=== PATIENT | female | born 1940 | race Caucasian/White ===

== ENCOUNTER → 2017-11-02 | Outpatient (CLI) | payer MEDICARE, BC ==
[~2017-11-02] MED LIST: BIOT10TA PO; CHOL1CAP34 PO; PANT40TA3 PO
[2017-11-02 09:54] LABS: BASOPHIL # 0.1 TH/MM3 (0-0.2); EOSINOPHIL # 0.2 TH/MM3 (0-0.4); HEMATOCRIT 38.7 % (35.0-46.0); HEMOGLOBIN 12.9 GM/DL (11.6-15.3); LYMPH % 37.9 % (9.0-44.0); LYMPHOCYTE # 2.3 TH/MM3 (1.0-4.8); MEAN CELL VOLUME 90.6 FL (80.0-100.0); MEAN CORPUSCULAR HEMOGLOBIN 30.3 PG (27.0-34.0); MEAN CORPUSCULAR HGB CONC 33.4 % (32.0-36.0); MEAN PLATELET VOLUME 7.7 FL (7.0-11.0); MONO % 9.6 % (0.0-8.0); MONOCYTE # 0.6 TH/MM3 (0-0.9); NEUT % 48.5 % (16.0-70.0); PLATELET COUNT 290 TH/MM3 (150-450); RED BLOOD COUNT 4.27 MIL/MM3 (4.00-5.30); RED CELL DISTRIBUTION WIDTH 13.6 % (11.6-17.2); WHITE BLOOD COUNT 6.2 TH/MM3 (4.0-11.0)
[2017-11-02 10:04] LABS: PROTHROMBIN TIME - PATIENT 10.3 SEC (9.8-11.6)
[2017-11-02 10:19] LABS: BILIRUBIN, URINE NEG (NEG); BLOOD, URINE NEG (NEG); GLUCOSE,URINE NEG (NEG); KETONE, URINE NEG (NEG); MUCUS URINE FEW /lpf (OCC); NITRITE,URINE NEG (NEG); PH, URINE 5.5 (5.0-8.5); URINE COLOR YELLOW (YELLW/STRAW); URINE LEUKOCYTE ESTERASE NEG (NEG)
[2017-11-02 10:23] LABS: ALBUMIN 4.3 GM/DL (3.4-5.0); ALT (GPT) 32 U/L (10-53); AST (GOT) 17 U/L (15-37); BICARBONATE 29.4 MEQ/L (21.0-32.0); BLOOD UREA NITROGEN 19 MG/DL (7-18); CALCIUM 9.8 MG/DL (8.5-10.1); CHLORIDE 106 MEQ/L (98-107); CREATININE 0.78 MG/DL (0.50-1.00); GLOMERULAR FILTRATION RATE 72 ML/MIN (>89); GLUCOSE,FASTING 106 MG/DL (74-99); SODIUM (NA) 142 MEQ/L (136-145)
[2017-11-02 10:25] LABS: ALKALINE PHOSPHATASE 70 U/L (45-117); TOTAL BILIRUBIN ADULT 0.8 MG/DL (0.2-1.0)
--- NOTE | 2017-11-02 11:02 | RADRPT ---
EXAM DATE: 11/02/2017 10:34 AM EDT AGE/SEX: 77 years / Female INDICATIONS: Evaluate for pneumonia, pneumothorax or communicable disease. Preop chest for colon argenis maren on 11/09/17 CLINICAL DATA: This is the patient's initial encounter. Patient reports that signs and symptoms have been present for 1 day and indicates a pain score of 0/10. MEDICAL/SURGICAL HISTORY: Diverticulosis. Diverticulitis. None. COMPARISON: No prior exams available for comparison. FINDINGS: PA and lateral views of the chest demonstrate the lungs to be symmetrically aerated without evidence of mass, infiltrate or effusion. The cardiomediastinal contours are unremarkable. Osseous structures are intact. CONCLUSION: Negative examination. Electronically signed by: Brett Paredes MD 11/02/2017 11:01 AM EDT
--- NOTE | 2017-11-02 18:17 | EKG ---
Date Performed: 11/02/2017 Time Performed: 09:36:43 PTAGE: 77 years EKG: Sinus rhythm POSSIBLE LEFT ATRIAL ENLARGEMENT BORDERLINE ECG NO PREVIOUS TRACING DOCTOR: Alexandrea Green Interpretating Date/Time 11/02/2017 18:13:08
== END ==
LOC: CPRE 09:10
PROVIDERS: ATTEND Colon & Rectal Surgery
DX: Z01.810 Encounter for preprocedural cardiovascular examination (principal); K57.20 Diverticulitis of large intestine with perforation and abscess without bleeding; R94.31 Abnormal electrocardiogram [ECG] [EKG]; Z01.812 Encounter for preprocedural laboratory examination; Z01.818 Encounter for other preprocedural examination
CPT/HCPCS: 36415; 71046; 80053; 81001; 85025; 85610; 85730; 93005

== ENCOUNTER 2017-11-09 11:14 | Inpatient (IN) | payer MEDICARE, BC ==
[~2017-11-09] VITALS: Ht 157.5 cm; Wt 44.3 kg
[2017-11-09] MEDS ORDERED: ONDANSETRON HCL 4 MG/2 ML VIAL IV ONE (12:00)
[2017-11-09] MEDS ORDERED: GLYCOPYRROLATE 1 MG/5 ML SYRINGE IV PUSH ONE (12:00)
[2017-11-09] MEDS ORDERED: SODIUM CHLORID 0.9% 500 ML IV PRN (12:00)
[2017-11-09] MEDS ORDERED: DEXAMETHASONE SOD PHOS 4 MG/ML VIAL IV ONE (12:00)
[2017-11-09] MEDS ORDERED: NEOSTIGMINE 5 MG/5 ML SYRINGE IV PUSH ONE (12:00)
[2017-11-09] MEDS ORDERED: ROCURONIUM INJ 50 MG/5 ML SYRINGE IV PUSH ONE (12:00)
[2017-11-09] MEDS ORDERED: METOPROLOL TARTRATE 25 MG TAB PO PRN (12:00)
[2017-11-09] MEDS ORDERED: DEXT 5%-NACL 0.9% 1000 ML INJ 1,000 ML IV SCH (12:00)
[2017-11-09] MEDS ORDERED: CHLORHEXIDINE GLUCONATE 2 % 1 PACK (2 CLOTHS) TOPICAL PRN (12:00)
[2017-11-09] MEDS ORDERED: PROPOFOL 200 MG/20 ML AMP IV ONE (12:00)
[2017-11-09] MEDS ORDERED: ceFAZolin 1,000 MG/NS 100 ML IV SCH ×2 (12:00)
[2017-11-09] MEDS ORDERED: KETOROLAC TROMETHAMINE 30 MG/ML (IVP) VIAL IV PUSH ONE (12:00)
[2017-11-09] MEDS ORDERED: NORMOSOL R INJ 2,000 ML IV ONE (12:00)
[2017-11-09] MEDS ORDERED: POVIDONE IODINE 5% (ANTISEPSIS KIT) 4 APPLICATIONS EACH NARE PRN (12:00)
[2017-11-09] MEDS ORDERED: LACTATED RINGER'S 1000 ML IV PRN (12:00)
[2017-11-09] MEDS ORDERED: ePHEDrine/NS 25 MG/5 ML SYRINGE IV ONE (12:00)
[2017-11-09] MEDS ORDERED: LIDOCAINE HCL 1% PF 5 ML SYRINGE OTHER ONE (12:00)
[2017-11-09] MEDS ORDERED: ALVIMOPAN 12 MG CAPSULE - On Call PO SCH (12:15)
[2017-11-09] MEDS ORDERED: APREPITANT 40 MG CAP ONE (12:47)
[2017-11-09] MEDS ORDERED: fentaNYL CITRATE 250 MCG/5 ML AMP ONE (12:59)
[2017-11-09] MEDS ORDERED: ACETAMINOPHEN 1000 MG/100 ML 100 ML IV ONE ×3 (12:59→16:45)
[2017-11-09] MEDS ORDERED: BUPIVACAINE HCL PF 0.5% 30 ML VIAL ONE (12:59)
[2017-11-09] MEDS ORDERED: GLUCAGON 1 MG/ML VIAL ONE (12:59)
[2017-11-09] MEDS ORDERED: APREPITANT 40 MG CAP PO ONE (13:45)
--- NOTE | 2017-11-09 14:11 | PD.OP ---
Operative Report Date of Surgery: Nov 09, 2017 Preoperative Diagnosis: Diverticulitis Postoperative Diagnosis: Same Procedure: Urethral dilatation, cystoscopy, placement of right ureteral catheter Anesthesia: RAMA Surgeon: Carlos Etienne Sourcing Coordinator(s): None Resident Surgeon: None Operation and Findings: 77-year-old female with history of diverticulitis. Request were made for bilateral ureteral catheter insertion. Patient was placed in the dorsal lithotomy position, prepped and draped in usual sterile fashion, received preprocedure antibiotics and general endotracheal tube anesthesia was administered. Initially I was unable to insert a 22 Prydeinig cystoscope and therefore urethral dilatation was performed. Using a 18 sound up to a 24 sound urethral dilatation occurred. The 22 Prydeinig cystoscope then was able to be inserted easily into the bladder and caraballo cystoscopy did not reveal any abnormalities. The right ureteral orifice was identified and a 5 Prydeinig open- ended catheter was inserted into the right ureteral orifice without difficulty. This was repeated on the left side however the catheter would not advance. A 0.35 sensor wire was then passed through the open-ended catheter and the wire would still not advance up the ureter. Decision was made to abort this portion of the procedure and the Bell catheter was inserted and the single catheter was attached to the Bell catheter. She tolerated the procedure well. Carlos Etienne DO Nov 09, 2017 14:11
[2017-11-09] MEDS ORDERED: SUGAMMADEX SODIUM 200 MG/2 ML VIAL IV PUSH ONE (15:22)
[2017-11-09] MEDS ORDERED: metroNIDAZOLE 500 MG INJ 100 ML IV SCH (15:30)
[2017-11-09] MEDS: D5-LR + KCL 20 MEQ INJ 1,000 ML IV SCH ×3 (15:30→20:46)
[2017-11-09] MEDS ORDERED: ENALAPRILAT 1.25 MG/ML VIAL IV PUSH PRN (15:30)
[2017-11-09] MEDS ORDERED: NALOXONE HCL 0.4 MG/ML AMP IV PUSH PRN (15:30)
[2017-11-09] MEDS ORDERED: KETOROLAC TROMETHAMINE 30 MG/ML (IVP) VIAL IVP PRN (15:30)
[2017-11-09] MEDS ORDERED: POTASSIUM CHLOR 40 MEQ PREMIX 100 ML IV PRN (15:30)
[2017-11-09] MEDS ORDERED: SODIUM CHLORIDE 0.9% FLUSH 10 ML FLUSH IV FLUSH PRN (15:30)
[2017-11-09] MEDS ORDERED: HYDROmorphone HCL PCA 6 MG/30 ML IV SCH (15:30)
[2017-11-09] MEDS ORDERED: ZOLPIDEM TARTRATE 5 MG TAB PO PRN (15:30)
[2017-11-09] MEDS ORDERED: BENZOCAINE 6 MG/MENTHOL 10 MG LOZENGE BUCCAL PRN (15:30)
[2017-11-09] MEDS ORDERED: Post-op Orders (for Pharmacy) XX ONE (15:30)
[2017-11-09] MEDS ORDERED: ACETAMINOPHEN/HYDROcodone 325 MG/5 MG TAB PO PRN (15:30)
[2017-11-09] MEDS ORDERED: POTASSIUM CHLOR 20 MEQ PREMIX 100 ML IV PRN (15:30)
[2017-11-09] MEDS ORDERED: NALOXONE HCL 0.4 MG/ML AMP ONE (15:37)
[2017-11-09] MEDS ORDERED: DO NOT ADM ANY ANTICOAGULANT DRUGS PRN (15:47)
[2017-11-09] MEDS ORDERED: HYDROmorphone HCL PF 2 MG/ML VIAL ONE (15:54)
[2017-11-09 16:13] LABS: AUTOMATED NEUTROPHIL # 14.4 TH/MM3 (1.8-7.7); BASOPHIL % 0.2 % (0.0-2.0); EOSINOPHIL # 0.1 TH/MM3 (0-0.4); EOSINOPHIL % 0.3 % (0.0-4.0); HEMATOCRIT 34.5 % (35.0-46.0); HEMOGLOBIN 11.6 GM/DL (11.6-15.3); LYMPH % 9.8 % (9.0-44.0); LYMPHOCYTE # 1.6 TH/MM3 (1.0-4.8); MEAN CELL VOLUME 91.1 FL (80.0-100.0); MEAN CORPUSCULAR HEMOGLOBIN 30.5 PG (27.0-34.0); MEAN CORPUSCULAR HGB CONC 33.4 % (32.0-36.0); MEAN PLATELET VOLUME 7.6 FL (7.0-11.0); MONO % 2.9 % (0.0-8.0); MONOCYTE # 0.5 TH/MM3 (0-0.9); NEUT % 86.8 % (16.0-70.0); PLATELET COUNT 236 TH/MM3 (150-450); RED BLOOD COUNT 3.79 MIL/MM3 (4.00-5.30); RED CELL DISTRIBUTION WIDTH 13.3 % (11.6-17.2); WHITE BLOOD COUNT 16.6 TH/MM3 (4.0-11.0)
--- NOTE | 2017-11-09 16:30 | MP ---
cc: Lg Rodriguez MD, Sunil P MD Van Diepen, Patricia G DO Thomas, Shawn W DO Terranova, Steven MD DATE OF OPERATION: 11/09/2017 PREOPERATIVE DIAGNOSIS: Diverticulitis. POSTOPERATIVE DIAGNOSIS: Diverticulitis. PROCEDURE PERFORMED: 1. Sigmoid colectomy, low anterior resection. 2. Intraoperative colonoscopy. ANESTHESIA: General endotracheal. SURGEON: Lg Rodriguez MD BAGGAGE SMASHER: Leroy Gamboa MD ESTIMATED BLOOD LOSS: 25 mL. OPERATING TIME: 1 hour and 15 minutes. OPERATIVE FINDINGS: This patient was referred to me by Dr. Hickey for diverticulitis. He could not complete a colonoscopy on her due to sigmoid tortuosity and for this reason, she underwent CT colonography and was found to have mild sigmoid diverticulosis. Of note, the patient has a history of a distal pancreatectomy and splenectomy as well as a cholecystectomy. Since that time, the patient had another bout of diverticulitis in August ,about 2 months ago. At that time, she was found to have a short segment of bowel wall thickening in the sigmoid colon, approximately 7 cm, with pericolonic stranding consistent with acute diverticulitis in the distal sigmoid. There was also a small 2.6 cm abscess. She was treated conservatively with antibiotics and cleared this. The patient and I have had numerous discussions regarding this and because of this and primarily bad bowel habits with difficulty on defecation, it was felt that sigmoid colectomy should be done. I felt that she may have a bit of sigmoid tortuosity also due to her previous hysterectomy with the sigmoid stuck in the pelvis with adhesions. At surgery, exploration of the abdominal cavity revealed that the liver was palpably normal. The gallbladder was surgically absent as was the tail of the pancreas and the spleen in the left upper quadrant. The colon was all palpably normal down well into the sigmoid colon where there was very little in the way of diverticulosis. In the distal sigmoid colon, deep in the pelvis, the sigmoid was indurated and fixed down in the pelvis, consistent with a previous attack of diverticulitis and also adhesions and kinking of the sigmoid colon down in the pelvis. A full sigmoid colectomy was done with a colorectal anastomosis in the mid to upper rectum above the cul-de-sac region. The anastomosis was done with an Ethicon EEA 29 stapling device. Intraoperative colonoscopy was also done, revealing no polyps or carcinomas in the remainder of the colon. Dr. Carlos Etienne also placed ureteral catheter. He could not get the left side placed easily and since the left ureter was able to be easily identified, he did not place the left catheter. The right ureteral catheter was placed and it was removed at the end of the case. OPERATIVE TECHNIQUE: The patient was placed on the table in the supine position. After adequate general endotracheal anesthesia, the legs were placed in the perineal lithotomy position and the abdomen and perineum were prepped and draped in the usual manner. Transverse infraumbilical skin incision was made and carried through the subcutaneous tissue and the rectus muscles and the peritoneal cavity was entered with the above-mentioned findings. The cecum and terminal ileum were mobilized along its peritoneal reflection up out of the abdomen and then the sigmoid and descending colon was mobilized up to but not including the splenic flexure. The sigmoid colon was mobilized along its peritoneal reflection. Again, the patient had had a previous total abdominal hysterectomy with bilateral salpingo-oophorectomy. There was a loop of sigmoid colon, which was thick and stuck down in the true pelvis and it was very adherent to the left pelvic sidewall and posterior to the vagina. This area was dissected free with electrocautery. Next, the superior hemorrhoidal vessels were doubly clamped, cut, and doubly ligated with 0 Vicryl ligatures and the inferior mesenteric vein was likewise clamped, cut, and ligated. The retrorectal space was entered and dissection was taken down to the pelvic floor with electrocautery posteriorly. The lateral pelvic peritoneum was incised bilaterally and the left anterior pelvic dissection of the sigmoid off of the pelvic wall was completed as well as the cul-de-sac. The cul-de-sac peritoneum anterior through the rectum was incised, but the cul-de-sac was not mobilized. Care was taken to identify the left ureter since there was no ureteral catheter present in it and it was easily identified and protected at all times. The right ureter was also identified and protected at all times. The segment of diverticulosis and previous diverticulitis was approximately 5 cm to 7 cm in length and it was in the very lower most portion of the sigmoid colon, right at the rectosigmoid junction. The mesorectum was clamped, cut, and ligated with 0 Vicryl ligature and the remainder was divided with electrocautery, and the rectum in the mid to upper rectum was cleared. A pursestring stapling device was placed on the rectum and the rectum was divided. A place was chosen in the upper sigmoid where there was good quality sigmoid colon without diverticulosis and plenty of length without having to mobilize the splenic flexure and do a full left colectomy. The remainder of the sigmoid mesentery was clamped, cut, and ligated and the sigmoid colon was cleared, and a pursestring stapling device was placed, the bowel was divided and the specimen was removed from the table and opened and there was no carcinoma present. Next, the anvil of the Ethicon 29 EEA was placed in the proximal bowel and the pursestring was tied. Dr. Gamboa then went below and placed the EEA instrument transanally and the distal pursestring was tied and the instrument was connected, closed and fired, creating the circular anastomosis. The anastomosis was intact circumferentially, and the blood supply was excellent proximal and distal to the anastomosis. Dr. Gamboa then did colonoscopy through the anastomosis and up through the descending colon, transverse colon, and ascending colon to the cecum. The scope was sequentially withdrawn circumferentially to look at the mucosa getting a good look to mucosa, although there was some cloudy fluid present that needed to be aspirated. A good look was obtained. No mass, lesions or polyps were found. At the termination of the colonoscopy, the rectum was distended with air, with saline solution in the pelvis and no air leaks were identified. Again, the anastomosis was inspected and found to be without tension and with a good vascular supply. The pelvis was irrigated with several liters of saline solution and aspirated dry. A #10 flat Daren drain was placed in the retrorectal space, and brought it out through a separate stab wound in the right lower quadrant. The bowels were replaced in the abdominal cavity, after ensuring adequate hemostasis with electrocautery and ligature and then the transverse colon was brought down over the small bowel and the omentum was placed in the lower abdomen. The abdominal cavity was then closed in layers using a double-stranded #1 PDS for the posterior rectus sheath. That muscle layer was then irrigated with saline solution using 1 liter and then the anterior rectus sheath was closed with a similar double-stranded #1 PDS. Subcutaneous tissue was irrigated thoroughly with saline solution and aspirated dry, and the skin was closed with running 3-0 Vicryl subcuticular suture and a dressing was applied. Sponge, needle and instrument counts were reported as correct. The estimated blood loss was 25 mL. Operating time was 1 hour and 15 minutes. MD ANG Briones/CHARLIE , 03:51 PM , 04:28 PM
[2017-11-09 16:37] LABS: BICARBONATE 19.8 MEQ/L (21.0-32.0); CALCIUM 8.4 MG/DL (8.5-10.1); CREATININE 0.98 MG/DL (0.50-1.00)
[2017-11-09] MEDS ORDERED: LORazepam 2 MG/ML VIAL ONE (16:38)
[2017-11-09] MEDS ORDERED: LORazepam 2 MG/ML VIAL IV ONE (16:45)
[2017-11-09] MEDS ORDERED: METOCLOPRAMIDE HCL 10 MG/2 ML VIAL IVS SCH (18:00)
[2017-11-09 18:08] VITALS: BP 138/68; PULSE 86; RESP 12; RESP 16; TEMP 97.7; O2SAT 99
[2017-11-09 19:00] VITALS: BP 139/64; PULSE 85; TEMP 97.2; O2SAT 99
[2017-11-09 20:23] VITALS: PULSE 79
[2017-11-09] MEDS: SODIUM CHLORIDE 0.9% FLUSH 10 ML FLUSH IV FLUSH SCH (20:46)
[2017-11-09] MEDS: FUROSEMIDE 20 MG/2 ML VIAL IV PUSH SCH (20:46)
[2017-11-09] MEDS: ceFAZolin 2 GM PREMIX 50 ML IV SCH (20:46)
[2017-11-09] MEDS: PCA - TOTAL MG DILAUDID DELIVERED PER SHIFT OTHER SCH (22:00)
[2017-11-09 22:18] VITALS: PULSE 82
[2017-11-09 23:00] VITALS: PULSE 94
[2017-11-10] VITALS (19 sets, daily range): BP systolic 112–144; BP diastolic 58–67; PULSE 67–94; RESP 16–22; TEMP 97.4–99.5; O2SAT 97–100
[2017-11-10] MEDS: D5-LR + KCL 20 MEQ INJ 1,000 ML IV SCH ×5 (01:30→20:30)
[2017-11-10 04:40] LABS: AUTOMATED NEUTROPHIL # 17.4 TH/MM3 (1.8-7.7); BASOPHIL % 0.1 % (0.0-2.0); HEMATOCRIT 32.8 % (35.0-46.0); HEMOGLOBIN 11.1 GM/DL (11.6-15.3); LYMPH % 3.2 % (9.0-44.0); LYMPHOCYTE # 0.6 TH/MM3 (1.0-4.8); MEAN CELL VOLUME 90.9 FL (80.0-100.0); MEAN CORPUSCULAR HEMOGLOBIN 30.7 PG (27.0-34.0); MEAN CORPUSCULAR HGB CONC 33.7 % (32.0-36.0); MEAN PLATELET VOLUME 8.1 FL (7.0-11.0); MONO % 6.1 % (0.0-8.0); MONOCYTE # 1.2 TH/MM3 (0-0.9); NEUT % 90.6 % (16.0-70.0); PLATELET COUNT 239 TH/MM3 (150-450); RED BLOOD COUNT 3.61 MIL/MM3 (4.00-5.30); RED CELL DISTRIBUTION WIDTH 13.2 % (11.6-17.2); WHITE BLOOD COUNT 19.2 TH/MM3 (4.0-11.0)
[2017-11-10 05:15] LABS: BICARBONATE 23.7 MEQ/L (21.0-32.0); CALCIUM 8.5 MG/DL (8.5-10.1); CREATININE 1.1 MG/DL (0.50-1.00)
[2017-11-10] MEDS: ceFAZolin 2 GM PREMIX 50 ML IV SCH ×2 (05:25→13:14)
[2017-11-10] MEDS: PCA - TOTAL MG DILAUDID DELIVERED PER SHIFT OTHER SCH ×3 (06:00→20:32)
[2017-11-10] MEDS: ALVIMOPAN 12 MG CAPSULE - Post-op dosing PO SCH ×2 (08:13→20:31)
[2017-11-10] MEDS: SODIUM CHLORIDE 0.9% FLUSH 10 ML FLUSH IV FLUSH SCH ×2 (08:14→20:32)
[2017-11-10] MEDS: FUROSEMIDE 20 MG/2 ML VIAL IV PUSH SCH ×2 (08:14→20:31)
[2017-11-10] MEDS: PANTOPRAZOLE SODIUM 40 MG VIAL IVP SCH (08:15)
--- NOTE | 2017-11-10 14:05 | HHI.PR ---
Subjective Remarks Some mild nausea, no vomiting. Pain controlled. Objective Vital Signs Date Time Temp Pulse Resp B/P (MAP) Pulse Ox O2 Delivery O2 Flow Rate FiO2 11/10/17 11:00 98.0 86 22 112/62 (79) 99 11/10/17 07:00 97.5 90 18 144/67 (92) 99 11/10/17 07:00 84 11/10/17 06:18 84 11/10/17 06:00 18 11/10/17 05:02 92 11/10/17 04:42 86 11/10/17 04:41 97.8 89 126/59 (81) 99 11/10/17 03:41 90 11/10/17 02:17 91 11/10/17 01:06 84 11/10/17 00:46 100 Nasal Cannula 2.00 11/10/17 00:42 97.4 94 125/58 (80) 100 11/10/17 00:14 85 11/09/17 23:00 94 11/09/17 22:18 82 11/09/17 22:00 10 11/09/17 20:23 79 11/09/17 19:00 85 11/09/17 19:00 97.2 85 139/64 (89) 99 11/09/17 19:00 99 Nasal Cannula 3.00 11/09/17 18:08 97.7 86 12 138/68 (91) 99 11/09/17 18:02 82 16 132/63 (86) 97 Nasal Cannula 2 11/09/17 16:45 79 16 120/58 (78) 98 Nasal Cannula 2 11/09/17 16:30 80 16 132/69 (90) 97 Nasal Cannula 2 11/09/17 16:21 16 11/09/17 16:15 81 16 145/71 (95) 100 Nasal Cannula 2 11/09/17 16:00 100 16 151/72 (98) 99 Nasal Cannula 2 11/09/17 15:45 97.5 106 16 155/72 (99) 100 Nasal Cannula 2 I/O 11/09/17 11/09/17 11/09/17 11/10/17 11/10/17 11/10/17 07:00 15:00 23:00 07:00 15:00 23:00 Intake Total 3300 ml 1625 ml Output Total 290 ml 1670 ml Balance 3010 ml -45 ml Intake Oral 0 ml 0 ml IV Total 3300 ml 1625 ml Output Urine Total 150 ml 1575 ml Drainage Total 40 ml 95 ml Estimated Blood Loss 100 ml Result Diagram: 11/10/17 0357 11/10/17 0357 Objective Remarks VS-S Abd: flat,soft,dressing dry Labs and I&Os-OK Assessment and Plan Assessment and Plan Stable POD#[address] [place] [address] D/C Tele IV to 100/hr Remove naik and [facility] in Lg Rodriguez MD Nov 10, 2017 14:05
[2017-11-10] MEDS: HEPARIN SODIUM - SQ 10,000 UNITS/ML VIAL SQ SCH (15:00)
[2017-11-10] MEDS ORDERED: ALVIMOPAN 12 MG CAPSULE PO SCH (21:00)
[2017-11-11] VITALS: BP 145/70; PULSE 82; RESP 18; TEMP 99; O2SAT 98
[2017-11-11] MEDS: HEPARIN SODIUM - SQ 10,000 UNITS/ML VIAL SQ SCH ×2 (01:58→15:00)
[2017-11-11 04:00] VITALS: BP 173/81; PULSE 82; RESP 18; TEMP 98.1; O2SAT 97
[2017-11-11] MEDS: PCA - TOTAL MG DILAUDID DELIVERED PER SHIFT OTHER SCH (04:14)
[2017-11-11 05:31] LABS: AUTOMATED NEUTROPHIL # 16.4 TH/MM3 (1.8-7.7); BASOPHIL # 0.1 TH/MM3 (0-0.2); BASOPHIL % 0.5 % (0.0-2.0); EOSINOPHIL % 0.2 % (0.0-4.0); HEMATOCRIT 31.5 % (35.0-46.0); HEMOGLOBIN 10.8 GM/DL (11.6-15.3); MEAN CELL VOLUME 90.2 FL (80.0-100.0); MEAN CORPUSCULAR HGB CONC 34.4 % (32.0-36.0); MEAN PLATELET VOLUME 8.5 FL (7.0-11.0); MONO % 6.9 % (0.0-8.0); MONOCYTE # 1.4 TH/MM3 (0-0.9); NEUT % 82.4 % (16.0-70.0); PLATELET COUNT 223 TH/MM3 (150-450); RED BLOOD COUNT 3.49 MIL/MM3 (4.00-5.30); RED CELL DISTRIBUTION WIDTH 13.4 % (11.6-17.2); WHITE BLOOD COUNT 19.9 TH/MM3 (4.0-11.0)
[2017-11-11 06:01] LABS: BICARBONATE 27.6 MEQ/L (21.0-32.0); CALCIUM 8.9 MG/DL (8.5-10.1); CREATININE 0.77 MG/DL (0.50-1.00)
[2017-11-11] MEDS: D5-LR + KCL 20 MEQ INJ 1,000 ML IV SCH ×2 (07:30→16:16)
[2017-11-11 08:00] VITALS: BP 141/85; PULSE 82; RESP 17; TEMP 98.5; O2SAT 100
[2017-11-11] MEDS: SODIUM CHLORIDE 0.9% FLUSH 10 ML FLUSH IV FLUSH SCH ×2 (08:56→20:48)
[2017-11-11] MEDS: FUROSEMIDE 20 MG/2 ML VIAL IV PUSH SCH ×2 (08:56→20:48)
[2017-11-11] MEDS: PANTOPRAZOLE SODIUM 40 MG VIAL IVP SCH (08:56)
[2017-11-11] MEDS: ALVIMOPAN 12 MG CAPSULE - Post-op dosing PO SCH ×2 (08:56→20:48)
--- NOTE | 2017-11-11 10:45 | HHI.PR ---
Subjective Remarks AVSS, wo n/v, rebecca diet, OU good Objective - ABD soft nt Vital Signs Date Time Temp Pulse Resp B/P (MAP) Pulse Ox O2 Delivery O2 Flow Rate FiO2 11/11/17 04:14 20 11/11/17 04:00 98.1 82 173/81 (111) 97 11/10/17 00:46 Nasal Cannula 2.00 Result Diagram: 11/11/17 0406 11/11/17 0406 A/P Assessment and Plan pod 2 LAR amb, decr IV, adv diet Leroy Gamboa MD Nov 11, 2017 10:45
[2017-11-11 11:24] VITALS: BP 176/79; PULSE 96; RESP 18; TEMP 97.7; O2SAT 100
[2017-11-11 16:00] VITALS: BP_SYST 185; BP_SYST 186; BP_DIAS 79; BP_DIAS 84; PULSE 82; RESP 16; TEMP 99.4; O2SAT 99
[2017-11-11] MEDS: ACETAMINOPHEN/HYDROcodone 325 MG/5 MG TAB PO PRN (18:37)
[2017-11-11 20:00] VITALS: BP 122/75; PULSE 82; TEMP 98.2; O2SAT 97
[2017-11-12] VITALS (7 sets, daily range): BP systolic 116–156; BP diastolic 65–80; PULSE 78–85; RESP 17–20; TEMP 97.8–98.6; O2SAT 96–98
[2017-11-12] MEDS: HEPARIN SODIUM - SQ 10,000 UNITS/ML VIAL SQ SCH ×2 (03:00→15:00)
[2017-11-12] MEDS: D5-LR + KCL 20 MEQ INJ 1,000 ML IV SCH ×2 (05:33→15:14)
[2017-11-12] MEDS: ALVIMOPAN 12 MG CAPSULE - Post-op dosing PO SCH ×2 (08:59→19:38)
[2017-11-12] MEDS: FUROSEMIDE 20 MG/2 ML VIAL IV PUSH SCH (08:59)
[2017-11-12] MEDS: PANTOPRAZOLE SODIUM 40 MG VIAL IVP SCH (08:59)
[2017-11-12] MEDS: SODIUM CHLORIDE 0.9% FLUSH 10 ML FLUSH IV FLUSH SCH ×2 (08:59→19:40)
[2017-11-12] MEDS: ACETAMINOPHEN/HYDROcodone 325 MG/5 MG TAB PO PRN ×2 (08:59→17:42)
--- NOTE | 2017-11-12 09:25 | HHI.PR ---
Subjective Remarks AVSS, wo n/v, rebecca diet, OU good c/o soreness Objective - ABD soft flat nt LIANE SS Vital Signs Date Time Temp Pulse Resp B/P (MAP) Pulse Ox O2 Delivery O2 Flow Rate FiO2 11/12/17 04:10 97.8 85 133/74 (93) 133/74 (93) 11/12/17 04:00 97 11/11/17 20:56 20 11/10/17 00:46 Nasal Cannula 2.00 Result Diagram: 11/11/17 0406 11/11/17 0406 A/P Assessment and Plan pod 3 LAR amb, adv diet home tomorrow Leroy Gamboa MD Nov 12, 2017 09:25
[2017-11-12] MEDS: ONDANSETRON HCL 4 MG/2 ML VIAL IV PUSH PRN ×2 (17:42→22:48)
--- NOTE | 2017-11-12 20:46 | RADRPT ---
EXAM DATE: 11/12/2017 8:19 PM EDT AGE/SEX: 77 years / Female INDICATIONS: Post op abdomen pain, nausea CLINICAL DATA: This is the patient's initial encounter. Patient reports that signs and symptoms have been present for 2 days and indicates a pain score of 3/10. MEDICAL/SURGICAL HISTORY: None. Colon resection. COMPARISON: No prior exams available for comparison. FINDINGS: Patient is reportedly postop. There is a drain overlying the pelvis. Small amount of free air noted u nder the right hemidiaphragm on the upright view. There is a diffuse mild ileus. CONCLUSION: Diffuse ileus. Small amount of free intraperitoneal air presumably related to recent surgery. Drain o verlies pelvis. Electronically signed by: Derian Daily MD 11/12/2017 8:45 PM EDT
[2017-11-13] VITALS: BP 142/73; PULSE 87; RESP 18; TEMP 98; O2SAT 98
[2017-11-13 00:32] VITALS: BP 135/78; PULSE 103; RESP 22; TEMP 97.3; O2SAT 99
[2017-11-13] MEDS ORDERED: PROCHLORPERAZINE INJ 10 MG/2 ML VIAL IV PRN (00:45)
[2017-11-13] MEDS: HEPARIN SODIUM - SQ 10,000 UNITS/ML VIAL SQ SCH ×2 (03:00→15:39)
[2017-11-13] MEDS: ONDANSETRON HCL 4 MG/2 ML VIAL IV PUSH PRN (06:33)
[2017-11-13 07:39] LABS: BASOPHIL % 0.1 % (0.0-2.0); HEMATOCRIT 39.4 % (35.0-46.0); HEMOGLOBIN 13.3 GM/DL (11.6-15.3); LYMPH % 6.6 % (9.0-44.0); MEAN CELL VOLUME 91.5 FL (80.0-100.0); MEAN CORPUSCULAR HEMOGLOBIN 30.7 PG (27.0-34.0); MEAN CORPUSCULAR HGB CONC 33.6 % (32.0-36.0); MEAN PLATELET VOLUME 8.3 FL (7.0-11.0); MONO % 4.9 % (0.0-8.0); NEUT % 88.4 % (16.0-70.0); PLATELET COUNT 298 TH/MM3 (150-450); RED BLOOD COUNT 4.31 MIL/MM3 (4.00-5.30); RED CELL DISTRIBUTION WIDTH 13.5 % (11.6-17.2); WHITE BLOOD COUNT 10.8 TH/MM3 (4.0-11.0)
[2017-11-13 07:40] LABS: AUTOMATED NEUTROPHIL # 9.6 TH/MM3 (1.8-7.7); LYMPHOCYTE # 0.7 TH/MM3 (1.0-4.8); MONOCYTE # 0.5 TH/MM3 (0-0.9)
--- NOTE | 2017-11-13 07:48 | HHI.PR ---
Subjective Remarks C/O Nausea and vomited 50cc this AM. No BMs or flatus. AxR yesterday without significant distention however some SB air Objective Vital Signs Date Time Temp Pulse Resp B/P (MAP) Pulse Ox O2 Delivery O2 Flow Rate FiO2 11/13/17 00:32 97.3 103 22 135/78 (97) 99 11/13/17 00:00 98.0 87 18 142/73 (96) 98 11/12/17 20:00 98.6 84 20 154/77 (102) 97 11/12/17 16:00 98.3 84 19 145/80 (101) 98 11/12/17 12:00 98.5 80 17 148/69 (95) 96 11/12/17 08:00 98.3 78 18 156/73 (100) 98 I/O 11/12/17 11/12/17 11/12/17 11/13/17 11/13/17 11/13/17 07:00 15:00 23:00 07:00 15:00 23:00 Intake Total 680 ml 120 ml Output Total 1180 ml 520 ml Balance -500 ml -400 ml Intake Oral 350 ml 120 ml IV Total 330 ml Output Urine Total 1100 ml 400 ml Emesis 50 ml Drainage Total 80 ml 70 ml # Bowel Movements 0 0 Result Diagram: 11/13/17 0645 11/11/17 0406 Objective Remarks VS-S Abd: flat,soft, wound clean,drain serous Labs and I&Os-OK Assessment and Plan Assessment and Plan Stable POD#4 Plan: Vomited this AM. Not distended. Told her not to push oral intake. IV at 100/hr. Await resolution Ileus Lg Rodriguez MD Nov 13, 2017 07:48
[2017-11-13 08:00] VITALS: BP_SYST 118; BP_SYST 120; BP_DIAS 65; PULSE 111; PULSE 113; RESP 19; TEMP 97.8; TEMP 98; O2SAT 94; O2SAT 95
[2017-11-13 08:03] LABS: BICARBONATE 27.3 MEQ/L (21.0-32.0); CALCIUM 9.7 MG/DL (8.5-10.1); CREATININE 0.98 MG/DL (0.50-1.00)
[2017-11-13] MEDS: PANTOPRAZOLE SODIUM 40 MG VIAL IVP SCH (09:16)
[2017-11-13] MEDS: ALVIMOPAN 12 MG CAPSULE - Post-op dosing PO SCH ×2 (09:16→20:27)
[2017-11-13] MEDS: SODIUM CHLORIDE 0.9% FLUSH 10 ML FLUSH IV FLUSH SCH ×2 (09:16→20:33)
[2017-11-13] MEDS: D5-LR + KCL 20 MEQ INJ 1,000 ML IV SCH ×2 (15:49→20:28)
[2017-11-13 17:00] VITALS: BP 116/62; PULSE 104; RESP 19; TEMP 98.7; O2SAT 96
[2017-11-13 20:00] VITALS: BP 119/67; PULSE 92; RESP 16; TEMP 99; O2SAT 95
[2017-11-14] VITALS: BP 153/71; PULSE 90; RESP 16; TEMP 98; O2SAT 95
[2017-11-14] MEDS: HEPARIN SODIUM - SQ 10,000 UNITS/ML VIAL SQ SCH ×2 (05:24→15:38)
[2017-11-14 08:00] VITALS: BP 145/73; PULSE 85; RESP 19; TEMP 98.3; O2SAT 96
[2017-11-14] MEDS: SODIUM CHLORIDE 0.9% FLUSH 10 ML FLUSH IV FLUSH SCH (09:00)
[2017-11-14] MEDS: ALVIMOPAN 12 MG CAPSULE - Post-op dosing PO SCH (10:38)
[2017-11-14] MEDS: PANTOPRAZOLE SODIUM 40 MG VIAL IVP SCH (10:38)
[2017-11-14] MEDS: D5-LR + KCL 20 MEQ INJ 1,000 ML IV SCH (10:39)
[2017-11-14 12:00] VITALS: BP 142/65; PULSE 88; RESP 18; TEMP 98.2; O2SAT 97
--- NOTE | 2017-11-14 13:39 | HHI.DCPOC ---
Discharge Care Plan Diagnosis: (1) Diverticulitis large intestine (2) S/P colon resection Your Health Problems Are: Incision/Drains Appetite Changes Irregular Bowel Function Exercise Tolerance Loss of Movements Goals to Promote Your Health * To prevent worsening of your condition and complications * To maintain your health at the optimal level Directions to Meet Your Goals Take your medications as prescribed Follow your dietary instruction Follow activity as directed Keep your appointments as scheduled Take your immunizations and boosters as scheduled If your symptoms worsen call your PCP, if no PCP go to Urgent Care Center or Emergency Room Smoking is Dangerous to Your Health. Avoid second hand smoke Call the 24-hour hour crisis hotline for domestic abuse at Lg Rodriguez MD Nov 14, 2017 13:39
--- NOTE | 2017-11-14 13:44 | HHI.PR ---
Subjective Remarks No complaints. Loose stools. No more N or V. Objective Vital Signs Date Time Temp Pulse Resp B/P (MAP) Pulse Ox O2 Delivery O2 Flow Rate FiO2 11/14/17 08:00 98.3 85 19 145/73 (97) 96 11/14/17 00:00 98.0 90 16 153/71 (98) 95 11/13/17 20:00 99.0 92 16 119/67 (84) 95 11/13/17 17:00 98.7 104 19 116/62 (80) 96 I/O 11/13/17 11/13/17 11/13/17 11/14/17 11/14/17 11/14/17 07:00 15:00 23:00 07:00 15:00 23:00 Intake Total 120 ml 760 ml Output Total 520 ml 60 ml 65 ml 40 ml Balance -400 ml 700 ml -65 ml -40 ml Intake Oral 120 ml 760 ml Output Urine Total 400 ml Emesis 50 ml Drainage Total 70 ml 60 ml 65 ml 40 ml # Voids 6 # Bowel Movements 0 1 Result Diagram: 11/13/1745 11/13/1745 Objective Remarks VS-S Abd: flat,soft, wound clean,drain removed by me I&Os-OK Assessment and Plan Assessment and Plan Stable POD#5 Plan: D/C to SNF for post op rehab.Resume meds. Regular diet Lg Rodriguez MD Nov 14, 2017 13:44
[2017-11-14 17:49] VITALS: BP 157/76; PULSE 80; RESP 19; TEMP 99.7; O2SAT 96
== END 2017-11-14 19:00 | DRG 331 ==
LOC: HSDI 11:14 → HCPC 18:00 → N07A 11-10 18:24
PROVIDERS: ADMIT Colon & Rectal Surgery; ATTEND Colon & Rectal Surgery
PROC: 0T9680Z Drainage of Right Ureter with Drainage Device, Via Natural or Artificial Opening Endoscopic (ICD-10-PCS; 2017-11-09)
PROC: 0T7D7ZZ Dilation of Urethra, Via Natural or Artificial Opening (ICD-10-PCS; 2017-11-09)
PROC: 0DTN0ZZ Resection of Sigmoid Colon, Open Approach (ICD-10-PCS; principal; 2017-11-09 13:31)
PROC: 0DJD8ZZ Inspection of Lower Intestinal Tract, Via Natural or Artificial Opening Endoscopic (ICD-10-PCS; 2017-11-09 13:31)
DX: K57.32 Diverticulitis of large intestine without perforation or abscess without bleeding (principal); I35.8 Other nonrheumatic aortic valve disorders; K21.9 Gastro-esophageal reflux disease without esophagitis; Z90.81 Acquired absence of spleen; Z90.411 Acquired partial absence of pancreas; Z90.710 Acquired absence of both cervix and uterus
CPT/HCPCS: 74019; 80048; 85025; 86850; 86900; 86901; 88307; 94150; C1769; C9113; J0131; J0690; J0780; J1100; J1170; J1610; J1644; J1885; J1940; J2060; J2310; J2405; J2710; J3010; J3480; J8501